=== PATIENT | female | born 1955 | race Caucasian/White ===

== ENCOUNTER 2024-09-18 06:29 | Day surgery (SDC) | payer OTHER, SELFPAY ==
--- NOTE | 2024-09-17 09:43 | PTCARENOTE ---
Abn ECG, Dr. Angelo notified, patient cleared for surgery on 09/18/24
[2024-09-17 11:30] LABS: Hematocrit 39.8 % (37.0-47.0); Hemoglobin 13.3 g/dL (12.0-16.0); Mean Corp Hgb Conc. 33.4 g/dL (33.0-37.0); Mean Corpuscular Volume 90.2 fL (81.0-99.0); Platelet Count 247 10^3/uL (130-400); Red Cell Dist. Width 14.2 % (11.5-14.5)
[2024-09-17 12:31] LABS: Blood Urea Nitrogen 15 mg/dl (7-17); Calcium 9.2 mg/dl (8.4-10.2); Carbon Dioxide 25 mmol/L (22-30); Chloride 107 mmol/L (98-107); Glucose 77 mg/dl (70-99); Potassium 4.2 mmol/L (3.5-5.1); Sodium 137 mmol/L (135-145); eGFR > 60.00
[2024-09-17 14:02] VITALS: BMI 22.9
[2024-09-18] VITALS (10 sets, daily range): BP systolic 135–161; BP diastolic 80–96; BMI 22.9
[2024-09-18] MEDS: TYLENOL 1000 MG PO (07:50)
[2024-09-18] MEDS: CELEBREX 200 MG PO (07:50)
[2024-09-18] MEDS: NORMOSOL-R/PLASMALYTE-A 1000 IV (07:51)
[2024-09-18] MEDS: DILAUDID 0.25 MG IV (11:03)
== END 2024-09-18 12:16 | disposition home or self-care (01) ==
LOC: SDS 06:29
PROVIDERS: ATTENDING PHYSICIAN Orthopaedic Surgery Hand Surgery; FAMILY PHYSICIAN Registered Nurse
DX: S52.551A Other extraarticular fracture of lower end of right radius, initial encounter for closed fracture (principal); Y93.55 Activity, bike riding
CPT/HCPCS: 25607; C1713; 36415; 80048; 85027; 93005